=== PATIENT | male | born 1940 | race Caucasian/White ===

== ENCOUNTER 2018-04-21 19:15 | Inpatient (IN) | payer MEDICARE, BC ==
[~2018-04-21] VITALS: Ht 180.3 cm; Wt 63.6 kg
[~2018-04-21 19:15] MED LIST: AMLO-339 PO; ASCO-134 PO; ASPI-612 PO; ATOR20TA PO; CLOP75TA35 PO; CYA500T PO; ESCI5TAB10 PO; FERR325T28 PO; FINA5TAB11 PO; GABA-532 PO; LOSA1TAB41 PO; NITR0.4T SL; PANT-47 PO; PHEN100C4 PO
[2018-04-21 21:33] LABS: HEMOGLOBIN 9.9 g/dl (14.0-17.9); RED BLOOD COUNT 4.62 X10'6 (4.70-6.10)
[2018-04-21 21:37] LABS: MEAN CORPUSCULAR HEMOGLOBIN 21.5 PG (27.0-31.0); MEAN CORPUSCULAR HGB CONC 31.1 % (33.0-36.5); MEAN CORPUSCULAR VOLUME 69.3 FL (78-98); MEAN PLATELET VOLUME 7.6 FL (7.4-10.4); PLATELET COUNT 436 X10'3 (140-440); RED CELL DISTRIBUTION WIDTH 22.1 % (11.5-14.5); WHITE BLOOD COUNT 10.2 X10'3 (4.5-11.0)
[2018-04-21 21:54] LABS: ALANINE AMINOTRANSFERASE 33 U/L (12-78); ALBUMIN 3.5 G/DL (3.4-5.0); ALBUMIN/GLOBULIN RATIO 0.9 (1.1-1.5); ALKALINE PHOSPHATASE 106 IU/L (46-116); ANION GAP 10 (8-16); ASPARTATE AMINO TRANSFERASE 15 U/L (10-37); BILIRUBIN,TOTAL 0.2 MG/DL (0.1-1.0); BLOOD UREA NITROGEN 15 MG/DL (7-18); BUN/CREATININE RATIO 12.6 (5.4-32.0); CALCIUM 8.7 MG/DL (8.5-10.1); CHLORIDE 104 MMOL/L (99-107); CREATININE 1.19 MG/DL (0.60-1.10); GLUCOSE 109 MG/DL (70-104); MAGNESIUM 1.6 MG/DL (1.5-2.4); POTASSIUM 3.7 MMOL/L (3.5-5.1); SODIUM 139 MMOL/L (135-145); TOTAL CARBON DIOXIDE 25.2 MMOL/L (24-32); TOTAL PROTEIN 7.2 G/DL (6.4-8.2); eGFR 59 ML/MIN
[2018-04-21 22:20] LABS: ANISOCYTOSIS 3+; PLATELET ESTIMATE NORMAL; TOTAL CELLS COUNTED 100
[2018-04-21 22:21] LABS: ACANTHOCYTES 2+; MICROCYTOSIS 2+
[2018-04-21 22:22] LABS: ELLIPTOCYTES 1+; HYPOCHROMASIA 1+; POLYCHROMASIA 1+
[2018-04-21 22:23] LABS: TEAR DROP CELLS FEW
[2018-04-21] MEDS ORDERED: normal saline 1000ML IV soln IVB ONE (22:40)
[2018-04-21] MEDS ORDERED: TYLENOL #3 PO (22:47)
[2018-04-21] MEDS ORDERED: COU4T PO (22:47)
[2018-04-22] VITALS (7 sets, daily range): BP systolic 127–187; BP diastolic 48–84
[2018-04-22] MEDS ORDERED: ondansetron/PF 4mg/2ml inj IV PRN (01:55)
[2018-04-22] MEDS ORDERED: acetaminophen 325mg tablet PO PRN (01:55)
[2018-04-22] MEDS ORDERED: nitroGLYCERIN 0.4mg SUBLingual tab SL PRN (02:00)
[2018-04-22 02:09] LABS: PHENYTOIN (DILANTIN) 5.4 UG/ML (10.0-20.0)
[2018-04-22 02:15] LABS: INR 3.2 INR; PROTHROMBIN TIME 30.3 SECONDS (9.0-12.0)
[2018-04-22] MEDS ORDERED: amLODIPine 2.5mg tablet PO SCH ×2 (04:05→08:00)
[2018-04-22] MEDS ORDERED: amLODIPine 5mg tablet PO SCH (08:00)
[2018-04-22] MEDS: gabapentin 300mg capsule PO SCH (08:43)
[2018-04-22] MEDS: phenytoin sod ER 100mg capsule PO SCH (08:43)
[2018-04-22] MEDS: atorvastatin 20mg tablet PO SCH (08:43)
[2018-04-22] MEDS: cyanocobalamin 500mcg tablet PO SCH (08:44)
[2018-04-22] MEDS: losartan 50mg tablet PO SCH (08:44)
[2018-04-22] MEDS: pantoprazole 40mg Tablet.DR PO SCH ×2 (08:44→21:18)
[2018-04-22] MEDS: CITALOpram 10mg tablet PO SCH (08:50)
[2018-04-22] MEDS ORDERED: pneumococcal 23-VAL P-sac vacc 25 mcg/0.5ml vial IMVAC ONE (10:00)
[2018-04-22] MEDS ORDERED: warfarin 4mg tablet PO SCH (21:00)
[2018-04-22] MEDS ORDERED: phenytoin sod ER 100mg capsule PO SCH (21:00)
[2018-04-22] MEDS ORDERED: finasteride 5mg tablet PO SCH (21:00)
[2018-04-22] MEDS ORDERED: gabapentin 300mg capsule PO SCH (21:00)
[2018-04-23 06:00] VITALS: BP 165/69
[2018-04-23 07:35] LABS: HEMATOCRIT 31.6 % (42.0-52.0); HEMOGLOBIN 9.6 g/dl (14.0-17.9); MEAN CORPUSCULAR HEMOGLOBIN 21.3 PG (27.0-31.0); MEAN CORPUSCULAR HGB CONC 30.5 % (33.0-36.5); MEAN CORPUSCULAR VOLUME 69.8 FL (78-98); MEAN PLATELET VOLUME 7.6 FL (7.4-10.4); PLATELET COUNT 424 X10'3 (140-440); RED BLOOD COUNT 4.53 X10'6 (4.70-6.10); RED CELL DISTRIBUTION WIDTH 21.5 % (11.5-14.5); WHITE BLOOD COUNT 12.3 X10'3 (4.5-11.0)
[2018-04-23 07:54] LABS: ALANINE AMINOTRANSFERASE 22 U/L (12-78); ALBUMIN 3.1 G/DL (3.4-5.0); ALBUMIN/GLOBULIN RATIO 0.9 (1.1-1.5); ALKALINE PHOSPHATASE 89 IU/L (46-116); ANION GAP 11 (8-16); ASPARTATE AMINO TRANSFERASE 16 U/L (10-37); BILIRUBIN,TOTAL 0.3 MG/DL (0.1-1.0); BLOOD UREA NITROGEN 15 MG/DL (7-18); BUN/CREATININE RATIO 11.6 (5.4-32.0); CALCIUM 8.9 MG/DL (8.5-10.1); CHLORIDE 105 MMOL/L (99-107); CREATININE 1.29 MG/DL (0.60-1.10); GLUCOSE 129 MG/DL (70-104); POTASSIUM 3.8 MMOL/L (3.5-5.1); SODIUM 141 MMOL/L (135-145); TOTAL CARBON DIOXIDE 24.7 MMOL/L (24-32); TOTAL PROTEIN 6.7 G/DL (6.4-8.2); eGFR 54 ML/MIN
[2018-04-23] MEDS ORDERED: amLODIPine 2.5mg tablet PO SCH (08:00)
[2018-04-23 08:07] LABS: ANISOCYTOSIS 3+; INR 1.6 INR; MICROCYTOSIS 2+; PLATELET ESTIMATE NORMAL; PROTHROMBIN TIME 15.8 SECONDS (9.0-12.0); TOTAL CELLS COUNTED 100
[2018-04-23 08:08] LABS: ACANTHOCYTES 1+; ELLIPTOCYTES FEW; HYPOCHROMASIA 1+; POLYCHROMASIA FEW
[2018-04-23] MEDS: CITALOpram 10mg tablet PO SCH (08:46)
[2018-04-23] MEDS: losartan 50mg tablet PO SCH (08:46)
[2018-04-23] MEDS: phenytoin sod ER 100mg capsule PO SCH (08:46)
[2018-04-23] MEDS: atorvastatin 20mg tablet PO SCH (08:47)
[2018-04-23] MEDS: cyanocobalamin 500mcg tablet PO SCH (08:47)
[2018-04-23] MEDS: gabapentin 300mg capsule PO SCH (08:47)
[2018-04-23] MEDS: pantoprazole 40mg Tablet.DR PO SCH (08:47)
[2018-04-23 10:00] VITALS: BP_SYST 124; BP_SYST 138; BP_SYST 143; BP_DIAS 66; BP_DIAS 68; BP_DIAS 72
[2018-04-23] MEDS ORDERED: LOSA25TA96 PO (11:24)
[2018-04-23] MEDS ORDERED: warfarin 4mg tablet PO ONE (21:00)
== END 2018-04-23 14:20 | disposition home or self-care (01) | DRG 312 ==
LOC: ER 19:16 → ED HOLD 04-22 01:53 → ORTHO 4S 04-22 03:10
PROVIDERS: ADMIT Internal Medicine; ATTEND Internal Medicine
PROC: 3E02340 Introduction of Influenza Vaccine into Muscle, Percutaneous Approach (ICD-10-PCS; principal; 2018-04-22)
PROC: 3E0234Z Introduction of Serum, Toxoid and Vaccine into Muscle, Percutaneous Approach (ICD-10-PCS; 2018-04-22)
DX: R55 Syncope and collapse (principal); N17.9 Acute kidney failure, unspecified; E78.5 Hyperlipidemia, unspecified; E86.0 Dehydration; G40.909 Epilepsy, unspecified, not intractable, without status epilepticus; G47.30 Sleep apnea, unspecified; I10 Essential (primary) hypertension; G62.9 Polyneuropathy, unspecified; I83.90 Asymptomatic varicose veins of unspecified lower extremity; I25.10 Atherosclerotic heart disease of native coronary artery without angina pectoris; F32.9 Major depressive disorder, single episode, unspecified; I48.2 Chronic atrial fibrillation; K21.9 Gastro-esophageal reflux disease without esophagitis; Z93.2 Ileostomy status; Z90.81 Acquired absence of spleen; Z95.0 Presence of cardiac pacemaker; Z95.5 Presence of coronary angioplasty implant and graft; Z88.8 Allergy status to other drugs, medicaments and biological substances; Z79.01 Long term (current) use of anticoagulants; Z85.46 Personal history of malignant neoplasm of prostate; Z86.73 Personal history of transient ischemic attack (TIA), and cerebral infarction without residual deficits; Z87.891 Personal history of nicotine dependence; Z23 Encounter for immunization
CPT/HCPCS: 36415; 70450; 71045; 80053; 80185; 83735; 83880; 84484; 85025; 85610; 87070; 90732; 93005; 93306; 93880; 97110; 97116; 97163; 97530; 99285; G0378

== ENCOUNTER 2019-03-21 13:02 | Day surgery (SDC) | payer MEDICARE, BC ==
[2019-03-21] VITALS (8 sets, daily range): BP systolic 148–192; BP diastolic 69–102
[~2019-03-21] VITALS: Ht 180.3 cm; Wt 80.0 kg
[~2019-03-21 13:02] MED LIST changes: -AMLO-339 PO; -ASCO-134 PO; -ASPI-612 PO; -CLOP75TA35 PO; +COU4T PO; -CYA500T PO; +CYAN500T63 PO; +ESCI5TAB PO; -ESCI5TAB10 PO; -FERR325T28 PO; -LOSA1TAB41 PO; +LOSA25TA96 PO; +TYLENOL #3 PO
[2019-03-21] MEDS ORDERED: ASPI-611 PO (14:15)
[2019-03-21] MEDS ORDERED: IRON150C5 PO (14:15)
[2019-03-21] MEDS ORDERED: AMLO5TAB PO (14:15)
[2019-03-21] MEDS ORDERED: LOSA25TA96 PO (14:15)
[2019-03-21] MEDS ORDERED: ASCO125T PO (14:15)
[2019-03-21] MEDS ORDERED: METO25TA6 PO (14:15)
[2019-03-21] MEDS ORDERED: LORazepam 0.5 MG tablet PO PRN (16:25)
[2019-03-21] MEDS ORDERED: normal saline 1,000 ML IV SCH (16:25)
[2019-03-21] MEDS ORDERED: diphenhydrAMINE 25mg capsule PO PRN (16:25)
[2019-03-21] MEDS ORDERED: iohexol 350MG/ML 100ml bottle IV ONE (16:30)
[2019-03-21] MEDS ORDERED: midazolam 2 mg/2 ml injection ONE (16:30)
[2019-03-21] MEDS ORDERED: LIDOcaine 1% (10mg/ml)w/preservative injection 20ml MDV ONE (16:30)
[2019-03-21] MEDS ORDERED: fentaNYL/PF 50MCG/1 ML 2ML syringe ONE (16:30)
[2019-03-21] MEDS ORDERED: iohexol 350 MG/ML 50ML vial IV ONE (17:12)
[2019-03-21] MEDS ORDERED: heparin 1,000unit/ml 10ml vial 10 ML ONE (17:12)
[2019-03-21] MEDS ORDERED: ticagrelor 90mg tablet ONE (17:30)
[2019-03-21] MEDS ORDERED: OXAZEpam 15mg capsule PO PRN (18:10)
[2019-03-21] MEDS ORDERED: ondansetron/PF 4mg/2ml inj IV PRN (18:10)
[2019-03-21] MEDS ORDERED: proCHLORperazine 10 MG/2 ml inj IV PRN (18:10)
== END 2019-03-21 20:00 | disposition home or self-care (01) ==
LOC: SSTAY O 13:02
PROVIDERS: ATTEND Internal Medicine Interventional Cardiology
DX: I25.118 Atherosclerotic heart disease of native coronary artery with other forms of angina pectoris (principal); I12.9 Hypertensive chronic kidney disease with stage 1 through stage 4 chronic kidney disease, or unspecified chronic kidney disease; N18.9 Chronic kidney disease, unspecified; I48.91 Unspecified atrial fibrillation; I25.2 Old myocardial infarction; D64.9 Anemia, unspecified; G47.33 Obstructive sleep apnea (adult) (pediatric); G40.909 Epilepsy, unspecified, not intractable, without status epilepticus; G62.9 Polyneuropathy, unspecified; Z88.8 Allergy status to other drugs, medicaments and biological substances; Z79.899 Other long term (current) drug therapy; Z79.01 Long term (current) use of anticoagulants
CPT/HCPCS: 36415; 85610; 93005; 93458; 99152; 99153; C1725; C1769; C1874; C9600; J1644; J2001; J2250; J3010; J7030; Q0163; Q9967; A4620; C1760

== ENCOUNTER 2020-02-22 12:18 | Outpatient (CLI) | payer MEDICARE, BC ==
[~2020-02-22 12:18] MED LIST changes: +CLOP75TA35 PO; -COU4T PO; -CYAN500T63 PO; -FINA5TAB11 PO; -GABA-532 PO; -LOSA25TA96 PO; +METO25TA6 PO; +PHEN100C12 PO; -TYLENOL #3 PO
[2020-02-22 13:42] LABS: ALANINE AMINOTRANSFERASE 25 U/L (12-78); ALBUMIN 3.8 G/DL (3.4-5.0); ALBUMIN/GLOBULIN RATIO 0.9 (1.1-1.5); ALKALINE PHOSPHATASE 81 IU/L (46-116); ASPARTATE AMINO TRANSFERASE 26 U/L (10-37); BILIRUBIN,TOTAL 0.3 MG/DL (0.1-1.0); CHOL/HDL RATIO 4.4 (0.00-4.99); CHOLESTEROL 194 MG/DL (0-200); HDL CHOLESTEROL 44 MG/DL (35-60); LDL CHOLESTEROL 100 MG/DL (50-100); TOTAL PROTEIN 7.9 G/DL (6.4-8.2); TRIGLYCERIDES 258 MG/DL (20-135)
== END 2020-02-22 23:59 | disposition home or self-care (01) ==
LOC: LAB 12:18
PROVIDERS: ATTEND Internal Medicine Interventional Cardiology
DX: C18.9 Malignant neoplasm of colon, unspecified (principal); I70.213 Atherosclerosis of native arteries of extremities with intermittent claudication, bilateral legs; I10 Essential (primary) hypertension; E78.5 Hyperlipidemia, unspecified; I70.0 Atherosclerosis of aorta; I25.118 Atherosclerotic heart disease of native coronary artery with other forms of angina pectoris; R94.31 Abnormal electrocardiogram [ECG] [EKG]; I48.0 Paroxysmal atrial fibrillation; R00.1 Bradycardia, unspecified; Z79.01 Long term (current) use of anticoagulants; Z95.5 Presence of coronary angioplasty implant and graft; Z95.0 Presence of cardiac pacemaker
CPT/HCPCS: 36415; 80061; 80076

== ENCOUNTER 2021-11-15 16:16 | Emergency (ER) | payer MEDICARE, BC ==
[~2021-11-15] VITALS: Ht 180.3 cm; Wt 80.7 kg
[~2021-11-15 16:16] MED LIST changes: +CLOP75TA34 PO; -CLOP75TA35 PO; -ESCI5TAB PO; +ESCI5TAB16 PO; +LOP25T PO; -METO25TA6 PO
[2021-11-15 17:45] LABS: BASOPHILS # (AUTO) 0.1 X10'3 (0-0.2); EOSINOPHILS # (AUTO) 0.6 X10'3 (0-0.9)
[2021-11-15 17:47] LABS: BASOPHILS % (AUTO) 1.1 % (0-1); EOSINOPHILS % (AUTO) 5.9 % (0-6); LYMPHOCYTES # (AUTO) 2.4 X10'3 (1.1-4.8); LYMPHOCYTES % (AUTO) 24.3 % (21-51); MEAN PLATELET VOLUME 7.5 FL (7.4-10.4); MONOCYTES # (AUTO) 0.9 X10'3 (0-0.9); MONOCYTES % (AUTO) 9.6 % (2-12); NEUTROPHILS # (AUTO) 5.7 X10'3 (1.8-7.7); NEUTROPHILS % (AUTO) 59.1 % (42-75)
[2021-11-15 18:01] LABS: HEMATOCRIT 35.2 % (42.0-52.0); MEAN CORPUSCULAR HEMOGLOBIN 24.3 PG (27.0-31.0); RED BLOOD COUNT 4.51 X10'6 (4.70-6.10); WHITE BLOOD COUNT 10.1 X10'3 (4.5-11.0)
[2021-11-15 18:02] LABS: MEAN CORPUSCULAR HGB CONC 31.1 g/dL (33.0-36.5); PLATELET COUNT 418 X10'3 (140-440); RED CELL DISTRIBUTION WIDTH 19.8 % (11.5-14.5)
[2021-11-15 18:05] LABS: ACANTHOCYTES 1+; ALANINE AMINOTRANSFERASE 9 U/L (12-78); ALBUMIN/GLOBULIN RATIO 0.8 (1.1-1.5); ALKALINE PHOSPHATASE 69 IU/L (46-116); ANION GAP 13 (8-16); ANISOCYTOSIS 3+; BILIRUBIN,TOTAL 0.3 MG/DL (0.1-1.0); BLOOD UREA NITROGEN 21 MG/DL (7-18); BUN/CREATININE RATIO 8.5 (5.4-32.0); CALCIUM 8.8 MG/DL (8.5-10.1); CHLORIDE 108 MMOL/L (99-107); CREATININE 2.47 MG/DL (0.60-1.10); GLUCOSE 165 MG/DL (70-104); MICROCYTOSIS 1+; PLATELET ESTIMATE NORMAL; POIKILOCYTOSIS FEW; POTASSIUM 4.9 MMOL/L (3.5-5.1); SCHISTOCYTES FEW; SODIUM 142 MMOL/L (135-145); TOTAL PROTEIN 6.9 G/DL (6.4-8.2); eGFR 25 ML/MIN
[2021-11-15 18:13] LABS: ASPARTATE AMINO TRANSFERASE 4 U/L (10-37)
[2021-11-15] MEDS ORDERED: normal saline 1000ml 1,000 ML IV ONE (18:25)
[2021-11-15 20:28] VITALS: BP 143/61
== END 2021-11-15 20:39 | disposition home or self-care (01) ==
LOC: ER 16:16
DX: N17.9 Acute kidney failure, unspecified (principal); R42 Dizziness and giddiness; E86.0 Dehydration; I48.91 Unspecified atrial fibrillation; I25.10 Atherosclerotic heart disease of native coronary artery without angina pectoris; I10 Essential (primary) hypertension; G47.30 Sleep apnea, unspecified; K21.9 Gastro-esophageal reflux disease without esophagitis; Z86.718 Personal history of other venous thrombosis and embolism; Z86.73 Personal history of transient ischemic attack (TIA), and cerebral infarction without residual deficits; Z87.19 Personal history of other diseases of the digestive system; Z88.8 Allergy status to other drugs, medicaments and biological substances; Z79.899 Other long term (current) drug therapy; Z95.0 Presence of cardiac pacemaker; Z79.01 Long term (current) use of anticoagulants; W18.30XA Fall on same level, unspecified, initial encounter; Z91.81 History of falling; Y93.01 Activity, walking, marching and hiking; Y92.89 Other specified places as the place of occurrence of the external cause; Y99.8 Other external cause status
CPT/HCPCS: 36415; 70450; 72125; 80053; 85008; 85025; 96360; 99285; J7030

== ENCOUNTER 2025-06-20 01:21 | Inpatient (IN) | payer MEDICARE, BC ==
[~2025-06-20] VITALS: Ht 180.3 cm; Wt 71.7 kg
[2025-06-20] VITALS (15 sets, daily range): BP systolic 76–172; BP diastolic 45–70; PULSE 60–88; RESP 12–20; TEMP 97.2–98; O2SAT 93–100
--- NOTE | 2025-06-20 01:28 | ELECTROCARDIOGRAPH REPORT ---
[facility] Test Date: 2025-06-20 Test Time: 01:27:35 Pat Name: DAREN ELIZALDE Department: EMERGENCY ROOM Room: [place] [address] Gender: M Manager Grocery: ROLANDO : 1940 Requested By: ANNAMARIA RUIZ Order Number: [id number] Reading MD: Dr. Addy Baker Measurements Intervals [place] Rate: 60 P: 0 MO: 190 QRS: -68 QRSD: 150 T: 100 QT: 480 QTc: 480 Interpretive Statements Atrial-paced rhythm IVCD, consider atypical RBBB LVH with IVCD and secondary repol abnrm Borderline prolonged QT interval Electronically Signed On 06-21-2025 21:14:[address] Addy Baker Please click the below link to view image of tracing.
--- NOTE | 2025-06-20 01:53 | Physician Documentation ---
History of Present Illness ~ Chief Complaint: Weakness Stated Complaint: WEAKNESS [facility] Time Seen by MD: 01:52 OK to notify your PCP?: Yes Primary Medical Doctor: Dr. Granda HPI Patient presents to the emergency room for evaluation of acute kidney injuries well as chest pain. He is sent from [facility]. He is found to have mildly elevated troponins in the light of some chest discomfort. No current chest discomfort. No anticoagulation. Patient has been having decreased renal function over the past couple of weeks and that has thought that has possibly due to Lasix administration that has well as Cipro administration for which she states that has doctor she has been for pneumonia. He states that has feels b treva regarding his symptoms of pneumonia. Medication Reconciliation Allergies: Coded Allergies: hydromorphone (Verified Allergy, Unknown, 10/30/19) scopolamine (Verified Allergy, Unknown, 10/30/19) Scheduled Escitalopram Oxalate (Escitalopram Oxalate), 3 TAB PO DAILY, (Reported) Fenofibrate Nanocrystallized (Fenofibrate), 1 TAB PO DAILY, (Reported) Furosemide (Lasix), 1 TAB PO DAILY, (Reported) Lisinopril (Lisinopril), 1 TAB PO DAILY, (Reported) Magnesium Oxide (Magnesium), 1 CAP PO DAILY, (Reported) Metoprolol Succinate (Metoprolol Succinate), 50 MG PO BID Pantoprazole Sodium (PROTONIX tablet), 1 TABLET PO BID, (Reported) Potassium Chloride (Klor-Con), 2 TAB PO DAILY, (Reported) Prednisone* (Prednisone*), 1 TAB PO BID, (Reported) Primidone (MYSOLINE tablet), 1 TAB PO DAILY, (Reported) Warfarin Sodium (Warfarin Sodium), 1 TAB PO DAILY, (Reported) [Tamsulosin], 40 MG PO DAILY Scheduled PRN Nitroglycerin (Nitrostat), 0.4 MG SL PRNCP PRN for chest pain, (Reported) Ondansetron HCl (Ondansetron HCl), 1 TAB PO Q4HPRN PRN for nausea/vomiting, (Reported) Discontinued Medications Amlodipine Besylate (Amlodipine Besylate), 1 TAB PO DAILY, (Reported) Discontinued Reason: ADR (Adverse Drug Rxn) Atorvastatin Calcium* (Lipitor*), 1 TABLET PO DAILY, (Reported) Discontinued Reason: patient no longer taking Clopidogrel Bisulfate (Clopidogrel), 1 TABLET PO DAILY, (Reported) Discontinued Reason: patient no longer taking Escitalopram Oxalate (Escitalopram Oxalate), 15 MG PO DAILY, (Reported) Discontinued Reason: patient no longer taking Fluticasone Furoate (Arnuity Ellipta), 1 PUFFS INH DAILY, (Reported) Discontinued Reason: patient no longer taking Fluticasone/Umeclidin/Vilanter (Trelegy Ellipta 100-62.5-25), 1 PUFFS INH DAILY, (Reported) Discontinued Reason: patient no longer taking Lisinopril* (Zestril*), 1 TAB PO DAILY, (Reported) Discontinued Reason: patient no longer taking Metoprolol Succinate (Metoprolol Succinate), 1 TAB PO BID, (Reported) Discontinued Reason: Prescription changed Metoprolol Tartrate* (Lopressor tablet*), 75 MG PO BID, (Reported) Discontinued Reason: patient no longer taking Phenytoin Sodium Extended (Dilantin), 3 CAP PO QAM, (Reported) Discontinued Reason: patient no longer taking Phenytoin Sodium Extended (Phenytoin Sodium Extended), 2 CAP PO HS, (Reported) Discontinued Reason: patient no longer taking Past Medical History Past Medical History: CVA/TIA/Stroke, Seizures, Vertigo, Atrial Fibrillation, Coronary Artery Disease, Hypertension, Vascular Disease, Sleep Apnea, Bowel Obstruction, GERD, Deep Vein Thrombosis, C-Diff, Lymphoma Past Surgical History: angioplasty, colectomy, pacemaker, other Other Past Surgical History: Splenectomy, ileostomy Patient History: (CAD) Coronary arteriosclerosis (COPD) Chronic obstructive lung disease FATHER, Name: Olegario Jackson (HX COPD), , Age: 65, Cause: Aortic aneurysm and dissection, Onset:Unknown (CVA) Cerebrovascular accident MOTHER, Name: Rebeca Jackson (dementia, four coronary stents,pacemaker,2 lithotripsy's,), , Age: 97, Cause: Old age, Not a twin, Onset:Unknown Alzheimer's disease MOTHER, Name: Rebeca Jackson (dementia, four coronary stents,pacemaker,2 lithotripsy's,), , Age: 97, Cause: Old age, Not a twin, Onset:60 years & older (LATE 70'S) Aortic aneurysm FATHER, Name: Olegario Jackson (HX COPD), , Age: 65, Cause: Aortic aneurysm and dissection, Onset:65 No Family History of: (CABG) Coronary artery bypass grafting (CHF) Congestive heart failure Alcohol Use: Rarely Drug Use: none Lives with: Spouse Lives In: Home Occupation: retired Review of Systems ROS All review of systems negative except as per HPI Physical Exam Vital Signs: Weight: 71.670 Physical Exam General: Patient is awake, alert, oriented x4 in no acute distress Head: Normocephalic and atraumatic. Eyes: Conjunctival normal. EOMI. PERRL. ENT: Mucous membranes moist. Neck: Supple, trachea is midline. Chest: Clear to auscultation bilaterally without rales, rhonchi, or wheezes. There is no accessory muscle use or retractions. Cardiac: RRR without murmurs, gallops, or rubs. Abd: Soft, nondistended, nontender, with normoactive bowel sounds. No guarding, rebound, or rigidity. Progress Results/Orders Results/Orders Orders - RIAZ GLOVER MD Monitor (06/20/25 01:21) Saline Lock (06/20/25 01:21) Oxygen (06/20/25 01:21) Page Hospitalist (06/20/25 02:26) Fill Out Med Reconciliation (06/20/25 02:26) Completed Orders - RIAZ GLOVER MD Cbc/Diff (06/20/25 01:21) PBNP (06/20/25 01:21) Electrocardiogram (06/20/25 01:21) Hs Troponin I W Calculations (06/20/25 01:21) Hs Troponin I W Calculations (06/20/25 03:21) Hs Troponin I W Calculations (06/20/25 04:21) CMP (06/20/25 01:21) Laboratory Tests Test 06/20/25 01:40 06/20/25 02:37 White Blood Count 5.1 Red Blood Count 4.22 L Hemoglobin 15.3 Hematocrit 44.9 Mean Corpuscular Volume 106.3 H Mean Corpuscular Hemoglobin 36.3 H Mean Corpuscular Hemoglobin Concent 34.1 Red Cell Distribution Width 13.4 Platelet Count 221 Mean Platelet Volume 9.2 Neutrophils (%) (Auto) 53.7 Lymphocytes (%) (Auto) 34.3 Monocytes (%) (Auto) 9.5 Eosinophils (%) (Auto) 2.2 Basophils (%) (Auto) 0.3 Neutrophils # (Auto) 2.7 Lymphocytes # (Auto) 1.7 Monocytes # (Auto) 0.5 Eosinophils # (Auto) 0.1 Basophils # (Auto) 0.0 CBC Comment Prothrombin Time 15.8 H INR International Normalized Ratio 1.6 Coagulation Comments Sodium Level 135 Potassium Level 4.6 Chloride Level 103 Carbon Dioxide Level 19.6 L Anion Gap 12 Blood Urea Nitrogen 87 H Creatinine 2.90 H Estimated GFR/1.73 m2 21 BUN/Creatinine Ratio 30.0 H Glucose Level 80 Calcium Level 9.2 Total Bilirubin 0.6 Aspartate Amino Transf (AST/SGOT) 25 Alanine Aminotransferase (ALT/SGPT) 25 Alkaline Phosphatase 47 Troponin I High Sensitivity 88 *H Pro-B-Type Natriuretic Peptide 740 H Total Protein 7.2 Albumin 3.6 Globulin 3.6 Albumin/Globulin Ratio 1.0 L Chemistry Comments Urine Specimen Description Cln catch midstream Urine Color Yellow Urine Clarity Clear Urine pH 5.5 Urine Specific [place] 1.010 Urine Protein Negative Urine Glucose (UA) Negative Urine Ketones Negative Urine Occult Blood Negative Urine Nitrite Negative Urine Bilirubin Negative Urine Urobilinogen 0.2 Urine Leukocyte Esterase Negative Volume Urine Centrifuged 10 ml Urine Eosinophils Rare eos Urine Osmolality 292 Urine Random Creatinine 50.0 Urine Random Total Protein 15.4 Urine Random Sodium 30 Urine Random Potassium 34 Urine Comment Urine Opiates Screen Negative Urine Methadone Screen Negative Urine Fentanyl Screen Negative Urine Barbiturates Screen Positive Urine Phencyclidine Screen Negative Urine Amphetamines Screen Negative Urine Benzodiazepines Screen Negative Urine Cocaine Screen Negative Urine Cannabinoids Screen Negative Drug Screen Comment EKG/XRAY/CT/US/VASC/MRI EKG : Additional Comment EKG interpreted by myself shows time of 0127, rate 60, atrial paced rhythm. No further analysis secondary to paced rhythm Medical Decision Making Additional information obtaine: other Findings Patient presents to the emergency room as a transfer for acute kidney injury and slightly elevated troponins. No current chest pain. Differential Dx:Considerations: Include: anemia, CVA, dehydration, dysrhythmia, electrolyte imbalance, encephalopathy, Guillain-Stafford, hypoglycemia, hypotensi on, hypovolemia, labyrinthitis, Meniere's disease, myasathenia gravis, myocardial infarction, pulmonary embolus, renal failure, respiratory failure, TIA, VBI, vertigo central, vertigo peripheral, vestibular neuronitis, other Departure Admitted to Inpatient Unit: yes, to hospitalist Impression: Primary Impression: NSTEMI (non-ST elevated myocardial infarction) Additional Impression: LAN (acute kidney injury) Condition: Guarded Referrals: NO PRIMARY CARE PROVIDER (PCP) Prescriptions [Tamsulosin] No Conflict Check 40 MG PO DAILY for 90 Days, #100 Prov: LOUIS VILLEGAS MD 06/20/25 Metoprolol Succinate (Metoprolol Succinate) 50 Mg Tab.sr.24h 50 MG PO BID for 90 Days, #100 TAB.SR Prov: LOUIS VILLEGAS MD 06/20/25 Critical Care Note Total Time (mins): 30 Critical Care Note The very real possibility of a deterioration of this patient's condition required the highest level of my preparedness for sudden, emergent intervention. I provided critical care services, which included medication orders, frequent reevaluations of the patient's condition and response to treatment, ordering and reviewing test results, and discussing the case with various consultants. Excludes time spent performing separately billable procedures. The critical care time associated with the care of the patient was 30 minutes not counting procedures Signature Scribe Signature: No scribe Attestation: The note accurately reflects work and decisions made by me.Riaz Glover MD 06/20/25 21:28 RIAZ GLOVER MD Jun 20, 2025 01:53
[2025-06-20 02:15] LABS: MEAN PLATELET VOLUME 9.2 FL (7.4-10.4); RED CELL DISTRIBUTION WIDTH 13.4 % (11.5-14.5)
[2025-06-20 02:16] LABS: CREATININE 2.90 MG/DL (0.60-1.10); TOTAL CARBON DIOXIDE 19.6 MMOL/L (24-32); eCRCL 20 ML/MIN; eGFR 21 ML/MIN
[2025-06-20 02:25] LABS: PRO BRAIN NATRIURETIC PEPTIDE 740 PG/ML (0-450)
[2025-06-20] MEDS ORDERED: ondansetron/PF 4mg/2ml inj IV PRN (02:45)
[2025-06-20] MEDS ORDERED: mag hydrox/Alum hydrox/simeth 30ml oral suspension PO PRN (02:45)
[2025-06-20] MEDS ORDERED: ondansetron 4mg rapidly disintigrating tab PO PRN (02:45)
[2025-06-20] MEDS ORDERED: magnesium sulf-water 4G/100mL 100 ML IV PRN (02:45)
[2025-06-20] MEDS ORDERED: potassium Cl 20 mEq SR tablet PO PRN ×2 (02:45)
[2025-06-20] MEDS ORDERED: magnesium hydroxide 30ml (MOM) UD suspension PO PRN (02:45)
[2025-06-20] MEDS ORDERED: potassium Cl 40MEQ/1/2NS 520ml 520 ML IV PRN (02:45)
[2025-06-20] MEDS ORDERED: magnesium Cl slow-release 64mg tablet PO PRN (02:45)
[2025-06-20] MEDS ORDERED: magnesium sulf-water 2g/50mL 50 ML IV PRN (02:45)
[2025-06-20 03:17] LABS: LEUKOCYTE ESTERASE ,URINE NEGATIVE (Neg); NITRITES, URINE NEGATIVE (Neg); OCCULT BLOOD,URINE NEGATIVE (Neg)
[2025-06-20 03:20] LABS: UA COLLECTION TYPE CLN CATCH MIDSTREAM
[2025-06-20 03:23] LABS: OSMOLALITY UA 292 MOSM/K (50-1400)
[2025-06-20 03:29] LABS: CREATININE,URINE RANDOM 50.0 MG/DL; TOTAL PROTEIN,URINE RANDOM 15.4 MG/DL; URINE AMPHETAMINE SCREEN NEGATIVE (Neg); URINE BARBITUATE SCREEN POSITIVE (Neg); URINE BENZODIAZEPINES SCREEN NEGATIVE (Neg); URINE CANNABINOID SCREEN NEGATIVE (Neg); URINE COCAINE SCREEN NEGATIVE (Neg); URINE METHADONE SCREEN NEGATIVE (Neg); URINE OPIATE SCREEN NEGATIVE (Neg); URINE PHENCYCLIDINE SCREEN NEGATIVE (Neg)
[2025-06-20 04:16] LABS: UA EOSINOPHILS RARE EOS /HPF
--- NOTE | 2025-06-20 04:17 | HISTORY AND PHYSICAL-Residence ---
History & Physical Providers to Resident Creating Document: MEL ANDUJAR, RES ~ History of Present Illness Primary Medical Doctor: Dr. Granda Reason for Admit\Complaint: Generalized weakness History of Present Illness 85-year-old male with a past medical history of coronary artery disease (CAD) status post stent 3, atrial fibrillation on pacemaker, and hypertension was transferred from another facility due to abnormal renal function and elevated troponins. The patient initially presented to the ED with generalized weakness, describing that he was so weak he could not stand and felt as though his legs were giving way. He also reported intermittent central chest tightness, which was non- radiating and not associated with nausea, vomiting, diaphoresis, or palpitations. Initially, he rated the chest discomfort as 5/10 in intensity, but it has since subsided. The patient denies slurred speech, focal neurological deficits, or blurry vision. He reports that he was recently admitted to another facility a few weeks ago, where he received Lasix for congestive heart failure (CHF) and ciprofloxacin for pneumonia. Since that admission, he has experienced persistent generalized weakness. Today, he presented to [facility], where laboratory tests revealed abnormal renal function and elevated troponins, prompting transfer Allergies: Coded Allergies: hydromorphone (Verified Allergy, Unknown, 10/30/19) scopolamine (Verified Allergy, Unknown, 10/30/19) Home Medications Home Medications Active Reported Clopidogrel (Clopidogrel Bisulfate) 75 Mg Tablet 1 Tablet PO DAILY Do not stop medication unless instructed by prescriber. Phenytoin Sodium Extended 100 Mg Capsule 2 Cap PO HS 30 Days Metoprolol Tartrate 25 Mg Tablet 75 Mg PO BID 30 Days Escitalopram Oxalate 5 Mg Tablet 15 Mg PO DAILY Nitrostat (Nitroglycerin) 0.4 Mg Tab.subl 0.4 Mg SL PRNCP PRN Lipitor* (Atorvastatin Calcium) 20 Mg Tablet 1 Tablet PO DAILY PROTONIX tablet (Pantoprazole Sodium) 40 Mg Tablet.dr 1 Tablet PO BID Dilantin (Phenytoin Sodium Extended) 100 Mg Capsule 3 Cap PO QAM Past Medical History Past Medical History Hypertension Hyperlipidemia History of seizure disorder History of AFib Coronary artery disease status post stent placement Essential tremor Past Surgical History Surgical History Comment Colectomy Pacemaker Coronary artery disease with stent placement Family History Family History: (CAD) Coronary arteriosclerosis (COPD) Chronic obstructive lung disease FATHER, Name: Olegario Jackson (HX COPD), , Age: 65, Cause: Aortic aneurysm and dissection, Onset:Unknown (CVA) Cerebrovascular accident MOTHER, Name: Rebeca Jackson (dementia, four coronary stents,pacemaker,2 lithotripsy's,), , Age: 97, Cause: Old age, Not a twin, Onset:Unknown Alzheimer's disease MOTHER, Name: Rebeca Jackson (dementia, four coronary stents,pacemaker,2 lithotripsy's,), , Age: 97, Cause: Old age, Not a twin, Onset:60 years & older (LATE 70'S) Aortic aneurysm FATHER, Name: Olegario Jackson (HX COPD), , Age: 65, Cause: Aortic aneurysm and dissection, Onset:65 No Family History of: (CABG) Coronary artery bypass grafting (CHF) Congestive heart failure Past Social History Social History Comment PCP-Dr. 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 Telles urologist for suspicious prostate cancer Patient lives in home alone Able to ambulate with the help of walker Quit smoking 60 years ago and drinks alcohol occasionally and denies any drug or marijuana use Smoking: Quit greater than 1 year Alcohol Use: Rarely Drug Use: None Lives with: Spouse Lives In: Home Occupation: retired ROS ROS Review of system is negative except that mentioned in HPI Exam Vitals: Vital Signs Date Time Temp Pulse Resp B/P (MAP) Pulse Ox O2 Delivery O2 Flow Rate FiO2 06/20/25 03:27 60 12 165/78 (107) 99 General: Awake , alert, and oriented x4 HEENT: Atraumatic, normocephalic, EOMI, anicteric sclera ; pink conjunctiva Neck: Trachea midline. Supple, full range of motion, no JVD Cardiac: Regular rhythm, regular rate with no murmurs all over the precordium. Respiratory: Equal breath sounds bilaterally, no tachypnea, no wheezing ,rub or rales, Chest wall is symmetric and without deformity. Gastrointestinal: Abdomen symmetric, non-distended, soft, non-tender, normal bowel sounds x4 quadrant, normoactive, no hepatosplenomegaly, ileostomy bag is present Neurological: Mental status exam: alert and consciousness, orientation, memory, speech - Cranial nerve test: Cranial nerves 2-12 intact - Motor system: Normal Nutrition, normal tone, Power 4/5, no involuntary movements - Sensory system: Intact - Reflex testing: Biceps, triceps and knee reflexes 2+ - Cerebellar: Normal Skin: Warm and dry Extremities : No Edema, peripheral pulses felt, No deformities, bruises are seen on bilateral upper extremities Psychiatric:Appropriate mood and affect,No hallucinations or suicidal ideation Diagnostic Data Last Recorded Lab Results: 06/20/25 0140 06/20/25 0140 Advance Care Planning Advanced Care plannin - 30 Minutes Additional Plan 85 years old male with past medical history of coronary artery disease status post stent placement, congestive heart failure, atrial fibrillation, pressure/anxiety he is currently evaluated for Acute kidney injury 2/2 prerenal with EGFR 21 Baseline creatinine-unknown BUN/creatinine-30, BUN 87, creatinine 2.90 Electrolytes-normal, bicarb 19.6 FeNa-1.3 ( Inderterminate), urine analysis negative Started IV NS 75 cc/hour, re-evaluate in a.m. Follow up with renal ultrasound, daily labs and nephrology consult in a.m. Chest discomfort with Troponinemia Patient has elevated troponin from 80s to 100 Chest discomfort but not typical features of angina Order Michael, follow up H/O CAD s/p Stent Patient takes atorvastatin, clopidogrel, warfarin at home Continue home med after med rec Hyperlipidemia Continue home med after med rec Hypertension Today patient blood pressure-160s Continue home after med rec Given a dose of hydralazine 10 mg IV History of Afib currently in normal sinus rythm takes metaprolol 25mg at home, Continue home med after med rec per patient he takes warfarin as he cannt afford eliquoNoise, History of seizure disorder Continue medications after med rec history of anxiety/depression Continue home meds after med rec History of essential tremor Patient is on primidone, continue home med after med rec Advance care: I spent a total of 16 minutes reviewing various resuscitative measures/ACP with patient. The patient decided to be DNR Code Status: DNR DVT prophylaxis: SCDs Analgesia/Sedation: Morphine/[place] Line/tube: Peripheral PT: Ordered Prognosis: Guarded Disposition: Patient will be monitored in PCU with telemetry, please follow up with renal ultrasound and consult Nephrology in a.m. and monitor troponin trend- patient has atypical chest pain follow up with Michael Med rec is pending, patient is currently on SCDs for DVT prophylaxis, make sure to start home med warfarin after med rec Mel Andujar PGY1-Internal Medicine Resident Attending Physician Attestation Evaluation via HIPAA compliant A/V device. I discussed the case with the resident and I agree with the resident's documentation. 85-year-old man with a history including coronary artery disease s/p PCI with JEFERSON (Cath [address] Brantley: PCI/JEFERSON RCA 70% occulusion, preserved LVEF), paroxysmal atrial fibrillation, hypertension, dyslipidemia, and seizure disorder now admitted with atypical chest pain and dyspnea. Laboratory testing notable for elevated troponin and LAN. The treatment plan includes: Continue outpatient cardiovascular medicatons including clopidogrel antiplatelet therapy, statin therapy, and beta-blockade. Serial cardiac markers and EKGs. Transthoracic echocardiogram to assess for WM abnormalities and estimate LVEF. Myocardial SPECT ordered. Warfarin targeting an INR of 2.0-3.0 for stroke prevention in the setting of paroxysmal atrial fibrillation. A Cardiology consultation will be requested. Time spent 50 minutes. Date of Service: Jun 20, 2025 Billing Provider: WE[place] BLACK[place] MD, SATISH, RES Jun 20, 2025 04:17 AVINASH ELLIS MD Jun 20, 2025 06:55
[2025-06-20 04:47] LABS: INR 1.6 INR
[2025-06-20 04:50] LABS: PHOSPHORUS 5.7 MG/DL (2.3-4.5)
[2025-06-20] MEDS ORDERED: metoprolol tartrate 1mg/ml inj IV PRN (06:25)
[2025-06-20] MEDS ORDERED: aminophylline 250mg/10ml inj. IV PRN (06:25)
[2025-06-20] MEDS: hydrALAZINE 20mg/ml inj. IV ONE (06:38)
[2025-06-20] MEDS: normal saline 1000ml 1,000 ML IV SCH (06:53)
[2025-06-20] MEDS ORDERED: FENO145T26 PO (07:17)
[2025-06-20] MEDS ORDERED: PRIM250T8 PO (07:17)
[2025-06-20] MEDS ORDERED: AMLO10TA13 PO (07:17)
[2025-06-20] MEDS ORDERED: FLUT200B3 INH (07:17)
[2025-06-20] MEDS ORDERED: COU (07:17)
[2025-06-20] MEDS ORDERED: FURO-149 PO (07:17)
[2025-06-20] MEDS ORDERED: ONDA-103 PO (07:17)
[2025-06-20] MEDS ORDERED: ESCI5TAB17 PO (07:17)
[2025-06-20] MEDS ORDERED: METO-411 PO (07:17)
[2025-06-20] MEDS ORDERED: FLUT1BLS4 INH (07:17)
[2025-06-20] MEDS ORDERED: POTA-192 PO (07:17)
[2025-06-20] MEDS ORDERED: LISI20TA28 PO (07:17)
[2025-06-20] MEDS ORDERED: MAGN400C PO (07:17)
[2025-06-20] MEDS ORDERED: LISI-644 PO (07:17)
[2025-06-20] MEDS ORDERED: WARF4TAB69 PO (07:18)
[2025-06-20] MEDS ORDERED: PRED5TAB PO (07:18)
[2025-06-20] MEDS: K and/or MAG REPLACEMENT MC SCH (08:00)
[2025-06-20] MEDS: docusate sod 100mg capsule PO SCH (08:00)
[2025-06-20] MEDS: regadenoson 0.4mg/5ml syringe IV PRN (08:44)
--- NOTE | 2025-06-20 10:12 | RADIOLOGY REPORT ---
PROCEDURE: NM NM KIESHA SCAN Exam Date: 06/20/2025 08:11 AM Reason for study/Clinical History: Atypical chest pain Comparison Study: None Myocardial Perfusion Study with SPECT TECHNIQUE: The patient received an intravenous injection of 8.6 mCi of technetium-99m sestamibi while at rest. After a short delay, SPECT tomographic images of the heart were obtained. The patient then went to the stress lab where they received an intravenous infusion of 0.[address] andard protocol. 35 mCi of technetium-99m sestamibi was injected intravenously immediately after the start of the lexiscan infusion. Gated SPECT tomographic images of the heart were acquired and processed. FINDINGS: No reversible perfusion defect. End diastolic volume: 95 mL End systolic volume: 55 mL The left ventricular ejection fraction is 42 %. (normal greater than 50%) Septal dyskinesia. IMPRESSION: No reversible defect. The left ventricular ejection fraction is 42 %. Septal dyskinesia.
--- NOTE | 2025-06-20 11:11 | RADIOLOGY REPORT ---
INDICATION: Acute kidney injury TECHNIQUE: Multiple real-time sonographic images of the kidneys and bladder were obtained. COMPARISON: None FINDINGS: RIGHT kidney measures 9.0 cm in length. Right renal cyst measures 1.7 cm. No hydronephrosis. LEFT kidney measures 9.7 cm in length. No hydronephrosis. No large intraluminal masses are seen in the bladder. Bilateral ureteral jets are visualized. IMPRESSION: No hydronephrosis.
--- NOTE | 2025-06-20 12:18 | RADIOLOGY REPORT ---
CHEST RADIOGRAPH INDICATION: CHF TECHNIQUE: Single frontal view of the chest was obtained COMPARISON: CHEST 1 VIEW on DOS: 06/19/25 FINDINGS: Lines and Tubes: Pacemaker wires intact. Lungs: Clear Pleura: No effusion. No pneumothorax. Cardiomediastinal contours: Unremarkable. Moderate vascular calcification of the aortic arch, stable. Bones: Unremarkable IMPRESSION: 1. No acute cardiopulmonary disease.
[2025-06-20] MEDS: ringers solution, lacted 1,000 ML IV SCH (14:34)
--- NOTE | 2025-06-20 17:23 | CONSULTATION REPORT - RESIDENT ---
Consult Providers to CC Resident Creating Document: JUMANAJOVANA RES History of Present Illness Reason for Admit\Complaint: generalised weakness, atypical chest pain History of Present Illness 85 years old male past medical history of hypertension, hyperlipidemia, CHF, seizures, coronary artery disease, peripheral artery disease, pacemaker placement is transferred to our facility from [facility]. The patient went to [facility] with chief complaint of worsening generalized weakness two point where he is not able to take care of himself, not eat or drink anything has a he was too weak to fix himself anything over the last 2-3 days. The patient also complained of atypical chest pain in the center of the chest, nonradiating and rated five on a scale of 10. He denied any associated triggers or relieving factors of the chest pain. Stated that the chest pain resolved by the time he went to the ER and did not have any recurrence of the chest pain. At [facility] the patient was found to have elevated troponins and elevated BUN, creatinine and was transferred to our hospital for evaluation and management of possible NSTEMI with cardiology consultation and LAN with Nephrology consultation. The patient currently denied any other concerns or complaints. He denied current chest pain or shortness of breaths. He denied any abdominal pain, headaches, dizziness, nausea, vomiting. Allergies: Coded Allergies: hydromorphone (Verified Allergy, Unknown, 10/30/19) scopolamine (Verified Allergy, Unknown, 10/30/19) Home Medications Home Medications Active Reported Prednisone* (Prednisone) 5 Mg Tablet 1 Tab PO BID 30 Days Warfarin Sodium 4 Mg Tablet 1 Tab PO DAILY 30 Days Arnuity Ellipta (Fluticasone Furoate) 200 Mcg Blst.w.dev 1 Puffs INH DAILY 30 Days MYSOLINE tablet (Primidone) 250 Mg Tablet 1 Tab PO DAILY 30 Days Metoprolol Succinate 100 Mg Tab.sr.24h 1 Tab PO BID 30 Days Escitalopram Oxalate 5 Mg Tablet 3 Tab PO DAILY 30 Days Trelegy Ellipta 100-62.5-25 (Fluticasone/Umeclidin/Vilanter) 100-62.5 Blst.w.dev 1 Puffs INH DAILY 30 Days Klor-Con (Potassium Chloride) 10 Meq Tab.prt.sr 2 Tab PO DAILY 30 Days Ondansetron HCl 4 Mg Tablet 1 Tab PO Q4HPRN PRN 3 Days Magnesium (Magnesium Oxide) 400 Mg Magnesium Capsule 1 Cap PO DAILY 30 Days Lisinopril 20 Mg Tablet 1 Tab PO DAILY 30 Days Lasix (Furosemide) 40 Mg Tablet 1 Tab PO DAILY 30 Days Fenofibrate (Fenofibrate Nanocrystallized) 145 Mg Tablet 1 Tab PO DAILY 30 Days Nitrostat (Nitroglycerin) 0.4 Mg Tab.subl 0.4 Mg SL PRNCP PRN PROTONIX tablet (Pantoprazole Sodium) 40 Mg Tablet.dr 1 Tablet PO BID Past Medical History Past Medical History Coronary artery disease, peripheral artery disease, status post pacemaker placement, CHF, hypertension, hyperlipidemia Past Surgical History Surgical History Comment Coronary artery disease status post stenting Peripheral artery disease status post stenting Pacemaker placement Family History Family History: (CAD) Coronary arteriosclerosis (COPD) Chronic obstructive lung disease FATHER, Name: Olegario Jackson (HX COPD), , Age: 65, Cause: Aortic aneurysm and dissection, Onset:Unknown (CVA) Cerebrovascular accident MOTHER, Name: Rebeca Jackson (dementia, four coronary stents,pacemaker,2 lithotripsy's,), , Age: 97, Cause: Old age, Not a twin, Onset:Unknown Alzheimer's disease MOTHER, Name: Rebeca Jackson (dementia, four coronary stents,pacemaker,2 lithotripsy's,), , Age: 97, Cause: Old age, Not a twin, Onset:60 years & older (LATE 70'S) Aortic aneurysm FATHER, Name: Olegario Jackson (HX COPD), , Age: 65, Cause: Aortic aneurysm and dissection, Onset:65 No Family History of: (CABG) Coronary artery bypass grafting (CHF) Congestive heart failure Past Social History Social History Comment PCP-Dr. [facility] Director-Dr. Brantley Has a scheduled appointment Dr. Telles urologist for suspicious prostate cancer Patient lives in home alone Able to ambulate with the help of walker Quit smoking 60 years ago and drinks alcohol occasionally and denies any drug or marijuana use ROS ROS As stated above in the HPI, otherwise all systems are reviewed and negative. Exam Vitals: Vital Signs Date Time Temp Pulse Resp B/P (MAP) Pulse Ox O2 Delivery O2 Flow Rate FiO2 06/20/25 08:59 75 18 141/52 100 Room Air General: Awake , alert, and oriented x4 HEENT: Atraumatic, normocephalic, EOMI, anicteric sclera ; pink conjunctiva Neck: Trachea midline. Supple, full range of motion, no JVD Cardiac: Regular rhythm, regular rate with no murmurs all over the precordium. Respiratory: Equal breath sounds bilaterally, no tachypnea, no wheezing ,rub or rales, Chest wall is symmetric and without deformity. Gastrointestinal: Abdomen symmetric, non-distended, soft, non-tender, normal bowel sounds x4 quadrant, normoactive, no hepatosplenomegaly, ileostomy bag is present Neurological: Patient oriented to time place and person. Cranial nerves 2-12 intact. No focal motor or sensory deficits. Skin: Warm and dry Extremities : No Edema, peripheral pulses felt, No deformities, bruises are seen on bilateral upper extremities Psychiatric:Appropriate mood and affect,No hallucinations or suicidal ideation Diagnostic Data Last Recorded Lab Results: 06/20/25 0140 06/20/25 0140 Diagnostic Data: Laboratory Tests Test 06/20/25 01:40 Prothrombin Time 15.8 SECONDS (9.0-12.0) H INR International Normalized Ratio 1.6 INR Coagulation Comments Additional Plan LAN Most likely has underlying CKD The patient's BUN and creatinine are 87 and 2.90 today. BUN to creatinine is 30. FENA is indeterminate Ultrasound of the kidneys is negative for any hydronephrosis or other signs of obstruction. Patient appears to be significantly dehydrated and dry. Most likely cause of the LAN is prerenal azotemia due to severe dehydration. Started the patient on LR at 100 cc/hours. He has a history of CHF and was on Lasix 40 b.i.d.. Currently on hold. We will continue to monitor the patient's clinical status, renal function test closely. Judicious use of fluids for now. Repeat chest x-ray daily. Strict input and output monitoring. Atypical chest pain The patient's director of provider relations Dr. Brantley. The patient underwent Lexiscan which was negative for reversible defect. Continue management per the hospitalist team. History of CHF History of AFib -currently rate controlled Chest x-ray does not show any acute cardiopulmonary disease. ProBNP mildly elevated at 740 Started the patient on fluids as he appears to be significantly dehydrated. Daily strict Is&Os. We will re-evaluate the need of fluids tomorrow. CODE STATUS: DNR Disposition: Continue medical management of the patient's chest pain and generalized weakness as per the Cardiology and hospitalist team. Patient will require physical therapy evaluation and treatment and possible discharge to a rehabilitation center. Jovana Mcintyre MD Internal Medicine Resident, PGY-3 Nephrology attending: Patient seen and examined. care plan reviewd with resident. the patient is over diuresed and needs to hold the diuretics temporarily and gentle hydration to get him out of this situation. Jaun Cassidy MD Date of Service: Jun 20, 2025 Billing Provider: JAUN CASSIDY MD,JOVANA VENTURA, RES Jun 20, 2025 17:23 JAUN CASSIDY MD Jun 21, 2025 09:17
[2025-06-20] MEDS ORDERED: METO-384 PO (19:12)
[2025-06-20] MEDS ORDERED: Tamsulosin PO (19:22)
[2025-06-21] VITALS (10 sets, daily range): BP systolic 97–211; BP diastolic 46–83; PULSE 60–85; RESP 13–20; TEMP 96.8–98.6; O2SAT 93–98
[2025-06-21 07:03] LABS: MEAN PLATELET VOLUME 9.4 FL (7.4-10.4); RED CELL DISTRIBUTION WIDTH 13.3 % (11.5-14.5)
[2025-06-21 07:12] LABS: INR 1.3 INR
[2025-06-21 07:29] LABS: CREATININE 1.35 MG/DL (0.60-1.10); TOTAL CARBON DIOXIDE 18.9 MMOL/L (24-32); eCRCL 42 ML/MIN; eGFR 50 ML/MIN
[2025-06-21] MEDS: pantoprazole 40mg Tablet.DR PO SCH (09:27)
[2025-06-21] MEDS: ESCITALOPRAM 10 mg tablet 10 MG TABLET PO SCH (09:28)
[2025-06-21 10:49] LABS: PHOSPHORUS 2.7 MG/DL (2.3-4.5)
--- NOTE | 2025-06-21 12:26 | PROGRESS NOTE- Residence ---
Progress Note - Resident Providers to CC Resident Creating Document: JUMANAYOHAN, RES ~ Central Line/PICC still needed: No Antibiotic Timeout Antibiotic Ordered?: No Subjective Patient seen and examined at the bedside today. The patient stated that he is feeling a little better when compared to prior to his admission. He reported that last night he had some abdominal pain but currently denied any pain or any other concerns or complaints. Denied any overnight events. No overnight events were reported. Objective Vital Signs Date Time Temp Pulse Resp B/P (MAP) Pulse Ox O2 Delivery O2 Flow Rate FiO2 06/21/25 08:51 60 06/21/25 08:00 161/62 (95) 161/64 (96) 98/46 (63) 06/21/25 08:00 14 95 06/21/25 02:00 98.6 Room Air Result Diagram: 06/21/25 0630 06/21/25 0630 Awake , alert, and oriented x4 HEENT: Atraumatic, normocephalic, EOMI, anicteric sclera ; pink conjunctiva Neck: Trachea midline. Supple, full range of motion, no JVD Cardiac: Regular rhythm, regular rate with no murmurs all over the precordium. Respiratory: Equal breath sounds bilaterally, no tachypnea, no wheezing ,rub or rales, Chest wall is symmetric and without deformity. Gastrointestinal: Abdomen symmetric, non-distended, soft, non-tender, normal bowel sounds x4 quadrant, normoactive, no hepatosplenomegaly, ileostomy bag is present Neurological: Patient oriented to time place and person. Cranial nerves 2-12 intact. No focal motor or sensory deficits. Skin: Warm and dry Extremities : No Edema, peripheral pulses felt, No deformities, bruises are seen on bilateral upper extremities Psychiatric:Appropriate mood and affect,No hallucinations or suicidal ideation Coagulation Studies Laboratory Tests Test 06/21/25 06:30 Prothrombin Time 13.0 SECONDS (9.0-12.0) H INR International Normalized Ratio 1.3 INR Coagulation Comments Advance Care Planning Advanced Care plannin - 30 Minutes Assessment Assessment 85 years old male with past medical history of coronary artery disease, peripheral artery disease, status post pacemaker placement, CHF, hypertension, hyperlipidemia, seizures is admitted in the hospital for evaluation and management of generalized weakness, LAN. Plan Plan LAN Most likely has underlying CKD The patient was significantly dehydrated prior to the admission. Most likely cause of his LAN is prerenal azotemia versus acute tubular necrosis. The patient was also significantly over diuresed with the Lasix 40 b.i.d. prior to the admission. He was not eating or drinking enough fluids due to generalized weakness and not able to take care of himself. The patient was started on IV fluids for hydration and maintenance. His BUN and creatinine have improved. The creatinine and BUN today are 1.35 and 54. Continue hydration and maintenance with a LR at 125 cc/hour. Hold Lasix 40 b.i.d.. The patient might not required such high doses of diuretics. Continue to monitor the patient's renal functions. Continue monitoring strict input and output and maintain negative fluid balance. Hyperphosphatemia The patient's phosphorus at the time of admission was 5.7. Most likely secondary to LAN due to severe dehydration. The phosphorus has improved and is 2.7 today. 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 Brantley. Consult Cardiology. The patient underwent Lexiscan which was negative for reversible defect. Continue management per the hospitalist team. History of CHF History of AFib -currently rate controlled Chest x-ray does not show any acute cardiopulmonary disease. ProBNP mildly elevated at 740 Started the patient on fluids as he appears to be significantly dehydrated. Daily strict Is&Os. Generalized weakness Failure to thrive Patient requires PT evaluation and treatment. He stated that he lives alone. Might require post acute care discharge prior to discharging home if the patient is not able to take care of himself. CODE STATUS: DNR Disposition: Continue medical management of the patient's chest pain and generalized weakness as per the Cardiology and hospitalist team. Patient will require physical therapy evaluation and treatment and possible discharge to a rehabilitation center. Yohan Mcintyre MD Internal Medicine Resident, PGY-3 Nephrology Attending Sign off: The patient was seen and examined. care plan reviewed with resident. he is alert. H is already better with creatinine down to 1.3. Resume lasix from tomorow at 1/2 chris dose that he normally takes to avoid volume depletion again. Jaun Cassidy MD Date of Service: Jun 21, 2025 Billing Provider: JAUN CASSIDY MD,YOHAN VENTURA, RES Jun 21, 2025 12:26 JAUN CASSIDY MD Jun 21, 2025 17:52
[2025-06-21] MEDS: ringers solution, lacted 1,000 ML IV ONE (13:09)
[2025-06-21] MEDS: hydrALAZINE 20mg/ml inj. IV ONE ×2 (13:42→21:53)
--- NOTE | 2025-06-21 17:21 | PROGRESS NOTE ---
Daily Progress Note Providers to CC No new complaint today, resting comfortably in the bed ~ Central Line/PICC still needed: No Alberts-Non Protocol Alberts Indications Met/Not Met: F/C Indications Not Met Antibiotic Timeout Antibiotic Ordered?: Yes MRSA Education MRSA Education Provided to pt: Yes Subjective As above Objective Vital Signs Date Time Temp Pulse Resp B/P (MAP) Pulse Ox O2 Delivery O2 Flow Rate FiO2 06/21/25 15:00 97.3 69 15 135/59 (84) 96 Room Air Vital signs, stable ,afebrile. Pulse Oximetry reflects adequate oxygenation. General: well developed, well nourished. Awake , alert, and oriented x4, resting comfortably in the bed, in no acute distress . Skin: Warm, dry, no pallor, no rash or petechiae. HEENT: Atraumatic, normocephalic, EOMI, anicteric sclera B; pink conjunctiva; PERRLA, normal oropharynx, moist oral and nasal mucosa. Tympanic membrane , nose , throat clear. Neck: Trachea midline. Supple, full range of motion, no JVD, bruit , hepatojugular reflex , lymphadenopathy or masses, or other lesions Cardiac: Regular rhythm, regular rate no murmurs, rubs, or gallops. Normal S1 and S2, no S3 noticed. PMI is normal. Respiratory: Equal breath sounds bilaterally, no tachypnea; lungs clear to auscultation bilaterally, no wheezing ,rub or rales, or crackles. Chest wall is symmetric and without deformity. No signs of trauma. Chest wall is nontender. No signs of respiratory distress. Resonance is normal upon percussion bilaterally. Gastrointestinal: Abdomen symmetric, non-distended, soft, non-tender, normal bowel sounds x4 quadrant, normoactive, no hepatosplenomegaly , no masses , no bruit, no flank pain bilaterally. No voluntary guarding, rebound, or rigidity. No tenderness to percussion. No pulsatile masses. Equal femoral pulses. No Peter's sign or McBurney point tenderness. Back; no CVA tenderness bilaterally, no deformities. Neck and back are without deformity as well. No tenderness noted on palpation of the spinous processes. Spinous processes are midline. Cervical, thoracic, and lumbar paraspinal muscles are not tender and are without spasm. : normal external genitalia, without lesions, swelling, masses or tenderness. Musculoskeletal: Extremities, normal range of motion, non-tender, muscle strength 5/5 x 4. Negative Homans signs bilaterally on lower extremity. Distal pulses full symmetrical, no clubbing, cyanosis , edema. Neurological: Speech is clear, alert, and oriented x 4. No motor or sensory deficit, deep tendon reflexes normal, cerebellar intact. Cranial nerves II-XII intact. Psych: Alert and or appropriate, normal affect. Vascular: Good distal pulses, which are equal x4; capillary refill less than 2 seconds. Lymphatic, no lymphadenopathy. Result Diagram: 06/21/25 0630 06/21/25 0630 Coagulation Studies Laboratory Tests Test 06/21/25 06:30 Prothrombin Time 13.0 SECONDS (9.0-12.0) H INR International Normalized Ratio 1.3 INR Coagulation Comments Problem\Assessment\Plan Plan 85 years old male with past medical history of coronary artery disease status post stent placement, congestive heart failure, atrial fibrillation, pressure/anxiety he is currently evaluated for Acute kidney injury 2/2 prerenal with EGFR 21 Baseline creatinine-unknown BUN/creatinine-30, BUN 87, creatinine 2.90 Electrolytes-normal, bicarb 19.6 FeNa-1.3 ( Inderterminate), urine analysis negative Started IV NS 75 cc/hour, re-evaluate in a.m. Follow up with renal ultrasound, daily labs; nephrology consult completed Chest discomfort to angina pectoris [place] type 2 secondary to above Patient has elevated troponin from 80s to 100 Chest discomfort but not typical features of angina Order Lexiscan, follow up H/O CAD s/p Stent Patient takes atorvastatin, clopidogrel, warfarin at home Continue home med after med rec Hyperlipidemia Continue home med after med rec Hypertension Today patient blood pressure-160s Continue home after med rec Given a dose of hydralazine 10 mg IV History of Afib currently in normal sinus rythm takes metaprolol 25mg at home, Continue home med after med rec per patient he takes warfarin as he cannt afford eliquis, History of seizure disorder Continue medications after med rec history of anxiety/depression Continue home meds after med rec History of essential tremor Patient is on primidone, continue home med after med rec Acute kidney injury secondary to renal tubular stasis Advance care: I spent a total of 16 minutes reviewing various resuscitative measures/ACP with patient. The patient decided to be DNR Code Status: DNR DVT prophylaxis: SCDs Analgesia/Sedation: Morphine/[place] Line/tube: Peripheral PT: Ordered Prognosis: Guarded Disposition: Patient will be monitored in PCU with telemetry, please follow up with renal ultrasound and consult Nephrology in a.m. and monitor troponin trend- patient has atypical chest pain follow up with Lexiscan Med rec is pending, patient is currently on SCDs for DVT prophylaxis, make sure to start home med warfarin after med rec Sepsis Screening Reassessment Date: Jun 21, 2025 Date of Service: Jun 21, 2025 Billing Provider: LOUIS VILLEGAS MD Common Visit Codes: [id number] INP/OBS CARE(HIGH) LOUIS VILLEGAS MD Jun 21, 2025 17:21
[2025-06-22 02:00] VITALS: BP 141/91; PULSE 78; RESP 13; TEMP 97.9; O2SAT 96
[2025-06-22 05:04] LABS: MEAN PLATELET VOLUME 9.4 FL (7.4-10.4); RED CELL DISTRIBUTION WIDTH 13.1 % (11.5-14.5)
[2025-06-22 05:10] LABS: INR 1.1 INR
[2025-06-22 05:27] LABS: CREATININE 1.06 MG/DL (0.60-1.10); PHOSPHORUS 1.9 MG/DL (2.3-4.5); TOTAL CARBON DIOXIDE 23.7 MMOL/L (24-32); eCRCL 54 ML/MIN; eGFR 67 ML/MIN
[2025-06-22 06:00] VITALS: BP 127/76; PULSE 91; RESP 16; TEMP 97.3; O2SAT 95
[2025-06-22 08:00] VITALS: RESP 16; O2SAT 95
[2025-06-22 11:00] VITALS: BP 105/51; PULSE 60; RESP 14; TEMP 96.6; O2SAT 98
[2025-06-22] MEDS ORDERED: SODIUM PHOSPHATE IN D5W 260 ML IV PRN (13:05)
[2025-06-22] MEDS ORDERED: sodium phos 15mmol/D5 255mL 255 ML IV PRN (13:05)
[2025-06-22] MEDS ORDERED: SPIR25TA PO (13:09)
[2025-06-22] MEDS ORDERED: EMPA10TA PO (13:09)
--- NOTE | 2025-06-22 19:27 | DISCHARGE SUMMARY ---
Discharge Summary Providers to Feels better today, asking to be discharged home ~ Discharge Summary Assessment Acute kidney injury, secondary to vasomotor nephropathy Non ST-elevation HI type 2 secondary to above Hypertension Hyperlipidemia History of seizure disorder History of AFib Coronary artery disease status post stent placement Essential tremor Admission Diagnosis: ELEVATED TROPONIN, CHEST PAIN Admission Diagnosis Comment: Acute kidney injury, secondary to vasomotor nephropathy Non ST-elevation HI type 2 secondary to above Hypertension Hyperlipidemia History of seizure disorder History of AFib Coronary artery disease status post stent placement Essential tremor Hospital Course DATE OF ADMISSION: June 20, 2025 DATE OF DISCHARGE: June 22, 2025 Discharge Diagnosis\Comment: Acute kidney injury, secondary to vasomotor nephropathy Non ST-elevation HI type 2 secondary to above Hypertension Hyperlipidemia History of seizure disorder History of AFib Coronary artery disease status post stent placement Essential tremor Operations\Procedures: Non Consultants: Non Complications: Non Condition on DC: Stable Discharge Summary: 85-year-old male with a past medical history of coronary artery disease (CAD) status post stent 3, atrial fibrillation on pacemaker, and hypertension was transferred from another facility due to abnormal renal function and elevated troponins. The patient initially presented to the ED with generalized weakness, describing that he was so weak he could not stand and felt as though his legs were giving way. He also reported intermittent central chest tightness, which was non- radiating and not associated with nausea, vomiting, diaphoresis, or palpitations. Initially, he rated the chest discomfort as 5/10 in intensity, but it has since subsided. The patient denies slurred speech, focal neurological deficits, or blurry vision. He reports that he was recently admitted to another facility a few weeks ago, where he received Lasix for congestive heart failure (CHF) and ciprofloxacin for pneumonia. Since that admission, he has experienced persistent generalized weakness. Today, he presented to [facility], where laboratory tests revealed abnormal renal function and elevated troponins, prompting transfer after admission patient was extensively evaluated treated, today patient feels fine has no pain no chest pain asking to be discharged home, he will be discharged in stable condition medication reconciled, follow-up PCP Nephrology and Cardiology in the morning, today on physical exam Vital signs, stable ,afebrile. Pulse Oximetry reflects adequate oxygenation. General: well developed, well nourished. Awake , alert, and oriented x4, resting comfortably in the bed, in no acute distress . Skin: Warm, dry, no pallor, no rash or petechiae. HEENT: Atraumatic, normocephalic, EOMI, anicteric sclera B; pink conjunctiva; PERRLA, normal oropharynx, moist oral and nasal mucosa. Tympanic membrane , nose , throat clear. Neck: Trachea midline. Supple, full range of motion, no JVD, bruit , hepatojugular reflex , lymphadenopathy or masses, or other lesions Cardiac: Regular rhythm, regular rate no murmurs, rubs, or gallops. Normal S1 and S2, no S3 noticed. PMI is normal. Respiratory: Equal breath sounds bilaterally, no tachypnea; lungs clear to auscultation bilaterally, no wheezing ,rub or rales, or crackles. Chest wall is symmetric and without deformity. No signs of trauma. Chest wall is nontender. No signs of respiratory distress. Resonance is normal upon percussion bilaterally. Gastrointestinal: Abdomen symmetric, non-distended, soft, non-tender, normal bowel sounds x4 quadrant, normoactive, no hepatosplenomegaly , no masses , no bruit, no flank pain bilaterally. No voluntary guarding, rebound, or rigidity. No tenderness to percussion. No pulsatile masses. Equal femoral pulses. No Peter's sign or McBurney point tenderness. Back; no CVA tenderness bilaterally, no deformities. Neck and back are without deformity as well. No tenderness noted on palpation of the spinous processes. Spinous processes are midline. Cervical, thoracic, and lumbar paraspinal muscles are not tender and are without spasm. : normal external genitalia, without lesions, swelling, masses or tenderness. Musculoskeletal: Extremities, normal range of motion, non-tender, muscle st rength 5/5 x 4. Negative Homans signs bilaterally on lower extremity. Distal pulses full symmetrical, no clubbing, cyanosis , edema. Neurological: Speech is clear, alert, and oriented x 4. No motor or sensory deficit, deep tendon reflexes normal, cerebellar intact. Cranial nerves II-XII intact. Psych: Alert and or appropriate, normal affect. Vascular: Good distal pulses, which are equal x4; capillary refill less than 2 seconds. Lymphatic, no lymphadenopathy. *Problems/Diagnosis: (1) Hypertension Status: Acute (2) Renal insufficiency Status: Acute (3) LAN (acute kidney injury) Status: Acute (4) NSTEMI (non-ST elevated myocardial infarction) Status: Acute Total Time Spent on D/C: > 30 Minutes Date of Service: Jun 22, 2025 Billing Provider: LOUIS VILLEGAS MD Common Visit Codes: 01325-PTC/OBS DISCH DAY >30min LOUIS VILLEGAS MD Jun 22, 2025 19:27
== END 2025-06-22 15:24 | disposition home or self-care (01) | DRG 682 ==
LOC: ER 01:21 → ED HOLD 02:50 → PCU 3S 07:13
PROVIDERS: ADMIT Internal Medicine Critical Care Medicine; ATTEND Family Medicine
PROC: 4A02XM4 Measurement of Cardiac Total Activity, External Approach (ICD-10-PCS; principal; 2025-06-20)
PROC: 3E033HZ Introduction of Radioactive Substance into Peripheral Vein, Percutaneous Approach (ICD-10-PCS; 2025-06-20)
DX: N17.0 Acute kidney failure with tubular necrosis (principal); I21.A1 Myocardial infarction type 2; Z66 Do not resuscitate; I50.9 Heart failure, unspecified; I48.91 Unspecified atrial fibrillation; E78.5 Hyperlipidemia, unspecified; G40.909 Epilepsy, unspecified, not intractable, without status epilepticus; G25.0 Essential tremor; I11.0 Hypertensive heart disease with heart failure; J44.9 Chronic obstructive pulmonary disease, unspecified; I25.10 Atherosclerotic heart disease of native coronary artery without angina pectoris; K21.9 Gastro-esophageal reflux disease without esophagitis; Z79.899 Other long term (current) drug therapy; Z88.8 Allergy status to other drugs, medicaments and biological substances; Z88.5 Allergy status to narcotic agent; Z86.73 Personal history of transient ischemic attack (TIA), and cerebral infarction without residual deficits; Z90.81 Acquired absence of spleen; Z95.5 Presence of coronary angioplasty implant and graft; Z85.72 Personal history of non-Hodgkin lymphomas; Z90.49 Acquired absence of other specified parts of digestive tract
CPT/HCPCS: 36415; 71045; 76770; 78452; 80053; 80305; 81003; 82550; 82570; 83735; 83880; 83935; 84100; 84133; 84156; 84300; 84443; 84484; 85025; 85610; 85651; 87081; 87207; 93005; 93017; 96374; 96375; 97116; 97161; 97530; 99291; A4421; A6213; A6250; A9500; G0378; J0360; J2785; J7030; J7120